=== PATIENT | male | born 1980 | race Two or more races ===

== ENCOUNTER 2021-03-03 13:12 | Emergency (ER) | payer SELFPAY ==
[~2021-03-03] VITALS: Ht 175.3 cm; Wt 77.1 kg
--- NOTE | 2021-03-03 18:57 | NUR ---
PT NOT IN WAITING ROOM. LEFT WITHOUT SEEING MD.
[2021-03-03 18:59] VITALS: BP 110/54
== END 2021-03-03 15:00 | disposition left against medical advice (07) ==
LOC: ER 13:15
DX: Z53.21 Procedure and treatment not carried out due to patient leaving prior to being seen by health care provider (principal); A05.9 Bacterial foodborne intoxication, unspecified